=== PATIENT | female | born 2000 | race Two or more races ===

== ENCOUNTER 2022-04-05 12:44 | Outpatient (REF) | payer OTHER, SELFPAY | END 2022-04-05 12:45 | disposition home or self-care (01) | LOC: HO.LNP 12:44 | PROVIDERS: Visit Provider Physician Assistant Medical | DX: Z13.89 Encounter for screening for other disorder (principal) ==

== ENCOUNTER 2022-05-09 14:07 | Outpatient (REF) | payer OTHER, SELFPAY ==
[2022-05-09 18:19] LABS: CT PCR NOT DETECTED (Not Detect.); NG PCR NOT DETECTED (Not Detect.)
[2022-05-10 11:11] LABS: BV Int Neg Control Negative (Negative); BV Int Pos Control Positive (Positive)
== END 2022-05-09 14:08 | disposition home or self-care (01) ==
LOC: HO.LNP 14:07
PROVIDERS: PCP Pediatrics Adolescent Medicine; Visit Provider Advanced Practice Midwife
DX: Z01.419 Encounter for gynecological examination (general) (routine) without abnormal findings (principal); N92.6 Irregular menstruation, unspecified; Z20.2 Contact with and (suspected) exposure to infections with a predominantly sexual mode of transmission
CPT/HCPCS: 0353U; 87480; 87510; 87660; 88142